=== PATIENT | male | born 1975 | race African-American/Black ===

== ENCOUNTER 2024-12-04 22:04 | Inpatient (IN) | payer MEDICAID ==
[~2024-12-04] VITALS: Ht 327.7 cm; Wt 65.8 kg
[~2024-12-04 22:04] MED LIST: SULF1TAB48 MT
[2024-12-04] MEDS: SODIUM CHLORIDE 0.9% (SEPSIS BOLUS) IV ONE (23:02)
[2024-12-04] MEDS: ACETAMINOPHEN 325MG TABLET PO STA (23:03)
[2024-12-04 23:04] LABS: BASOPHILS % 0.6 % (0.0-2.0); DIFFERENTIAL COMMENT 0; HEMATOCRIT. 37.2 % (42.0-52.0); HEMOGLOBIN. 12.9 g/dL (14.0-18.0); LYMPHOCYTES % 8.9 % (20.0-50.0); MEAN CORPUSCULAR HEMOGLOBIN 34.7 pg (28.0-32.0); MEAN CORPUSCULAR HGB CONC 34.6 g/dL (31.0-37.0); MEAN CORPUSCULAR VOLUME 100.3 fL (80.0-94.0); MEAN PLATELET VOLUME 8.1 fl (7.4-10.4); MONOCYTES % 13.3 % (2.0-8.0); NEUTROPHILS % 77.2 % (40.0-76.0); PLATELET 150 x1000/uL (130-400); RED BLOOD CELL COUNT 3.71 mill/uL (4.7-6.1); RED CELL DISTRIBUTION WIDTH 16.1 % (11.6-14.6); WHITE BLOOD COUNT 9.3 x1000/uL (4.5-11.0)
[2024-12-04] MEDS: PIPERACILLIN/TAZO 3.375G/50ML 50 ML IV ONE (23:04)
[2024-12-04] MEDS: MORPHINE SULFATE 4 MG/ML INJ (FOR IV/IM USE) IV ONE (23:04)
[2024-12-04 23:12] LABS: CARBON DIOXIDE 23 mEq/L (21-32); CHLORIDE 98 mEq/L (98-107); POTASSIUM 3.7 mEq/L (3.5-5.1); SODIUM 134 mEq/L (136-145)
[2024-12-04 23:13] LABS: CALCIUM 8.9 mg/dL (8.7-10.4)
[2024-12-04 23:14] LABS: PROTHROMBIN TIME 10.7 sec (9.6-11.0)
[2024-12-04 23:18] LABS: CREATININE 0.7 mg/dL (0.6-1.3); ETHANOL BLOOD 93 mg/dL (<10); GLUCOSE 105 mg/dL (70-105); UREA NITROGEN BLOOD 7 mg/dL (9-23)
[2024-12-04 23:19] LABS: LACTIC ACID 2.3 mmol/L (0.4-2.0)
[2024-12-04 23:20] LABS: ALANINE AMINOTRANSFERASE 15 IU/L (10-49); ALBUMIN 4.4 g/dL (3.2-4.8); ASPARTATE AMINOTRANSFERASE 25 IU/L (<34); BILIRUBIN DIRECT 0.1 mg/dL (<=3.0); BILIRUBIN TOTAL 0.4 mg/dL (0.1-1.0); TROPONIN I HIGH SENSITIVITY < 4 ng/L (3.0-53)
[2024-12-04] MEDS: VANCOMYCIN 1G PREMIX 200 ML IV ONE (23:25)
[2024-12-05] MEDS ORDERED: ACETAMINOPHEN 650MG SUPP PR PRN ×2 (01:15)
[2024-12-05] MEDS ORDERED: IPRATROPIUM/ALBUTEROL 0.5-3(2.5)MG/3ML NEB HHN PRN (01:15)
[2024-12-05] MEDS ORDERED: ONDANSETRON HCL 4MG/2ML INJ IV PRN (01:15)
[2024-12-05] MEDS ORDERED: AMLODIPINE 10MG TABLET PO SCH (01:30)
[2024-12-05] MEDS ORDERED: KETOROLAC 15MG/ML VIAL IV PRN (01:30)
[2024-12-05] MEDS ORDERED: HYDRALAZINE 20MG/ML VIAL IV PRN (01:45)
[2024-12-05] MEDS: MVI, ADULT NO.1 10 ML, FOLIC ACID 1 MG, THIAMINE HCL 100 MG in SODIUM CHLORIDE 0.9% 1,0... IV SCH (02:29)
[2024-12-05] MEDS: DEXT 5%/0.9% NACL 1,000 ML IV SCH (02:44)
[2024-12-05 02:50] LABS: PHOSPHORUS 2.1 mg/dL (2.5-4.9)
[2024-12-05] MEDS: PANTOPRAZOLE SODIUM 40 MG/VIAL IV SCH (02:50)
[2024-12-05 02:56] VITALS: BP 140/81; PULSE 97; RESP 18; TEMP 37.3
[2024-12-05 03:03] LABS: PARTIAL THROMBOPLASTIN TIME 34.2 sec (23.4-31.0); PROTHROMBIN TIME 10.7 sec (9.6-11.0)
[2024-12-05] MEDS ORDERED: LORAZEPAM 2MG/ML UD SYRINGE IV PRN (04:45)
[2024-12-05] MEDS: MAGNESIUM 2 G PREMIX 50 ML IV NR (05:04)
[2024-12-05] MEDS ORDERED: IOHEXOL-300 100 ML BOTTLE ONE (05:08)
[2024-12-05 05:25] VITALS: BP 140/81; PULSE 97; RESP 18; TEMP 37.2; O2SAT 97
[2024-12-05] MEDS: PIPERACILLIN/TAZO 3.375G/50ML 50 ML IV SCH (05:55)
[2024-12-05] MEDS: POTASSIUM PHOSPHATE 30 MMOL in SODIUM CHLORIDE 0.9% 490 ML IV NR (07:14)
[2024-12-05 07:17] LABS: CLARITY URINE CLEAR (CLEAR); COLOR URINE YELLOW (YELLOW); GLUCOSE URINE NEGATIVE (NEGATIVE); KETONES URINE NEGATIVE (NEGATIVE); LEUKOCYTE ESTERASE URINE NEGATIVE (NEGATIVE); NITRITE URINE NEGATIVE (NEGATIVE); OCCULT BLOOD URINE NEGATIVE (NEGATIVE); PROTEIN URINE NEGATIVE (NEGATIVE); SPECIFIC GRAVITY URINE 1.036 (1.005-1.030); UROBILINOGEN URINE 0.2 E.U./dL (0.2-1.0)
[2024-12-05 07:39] VITALS: BP 148/101; PULSE 86; RESP 17; TEMP 37.2; O2SAT 98
[2024-12-05 07:44] LABS: *AMPHETAMINES SCREEN URINE NEGATIVE (NEGATIVE); *BARBITURATES SCREEN URINE NEGATIVE (NEGATIVE); *BENZODIAZEPINES SCREEN URINE NEGATIVE (NEGATIVE); *COCAINE SCREEN URINE PRESUMPTIVE POSITIVE (NEGATIVE); CANNABINOID URINE SCREEN PRESUMPTIVE POSITIVE (NEGATIVE); ECSTASY MDMA SCREEN URINE NEGATIVE (NEGATIVE); METHADONE URINE SCREEN NEGATIVE (NEGATIVE); OPIATES URINE SCREEN PRESUMPTIVE POSITIVE (NEGATIVE); PHENCYCLIDINE URINE SCREEN NEGATIVE (NEGATIVE)
[2024-12-05] MEDS: AMLODIPINE 10MG TABLET PO SCH (08:25)
[2024-12-05] MEDS ORDERED: MAGNESIUM 2 G PREMIX 50 ML IV ONE (08:45)
[2024-12-05] MEDS ORDERED: VANCOMYCIN 1GM/200ML PMX (BAXTER) IV SCH (09:00)
[2024-12-05] MEDS: VANCOMYCIN 1GM/200ML PMX (BAXTER) IV SCH (09:05)
[2024-12-05 11:40] LABS: CREATINE KINASE MB FRACTION < 0.5 ng/mL (0.5-3.6)
[2024-12-05 11:47] LABS: FOLIC ACID (FOLATE) SERUM > 20.00 ng/mL (>5.38); VITAMIN B12 SERUM 476 pg/mL (211-911)
[2024-12-05 12:00] VITALS: BP 155/93; PULSE 86; RESP 17; TEMP 36.7; O2SAT 98
[2024-12-05 12:57] LABS: CREATINE KINASE 92 IU/L (46-171); TROPONIN I HIGH SENSITIVITY < 4 ng/L (3.0-53)
[2024-12-05] MEDS ORDERED: SODIUM PHOSPHATE 15 MMOL in DEXT 5% WATER 245 ML IV ONE (14:00)
[2024-12-05 16:00] VITALS: BP 144/104; PULSE 106; RESP 18; TEMP 36.8; O2SAT 100
[2024-12-05 16:27] LABS: CREATINE KINASE MB FRACTION < 0.5 ng/mL (0.5-3.6)
[2024-12-05 16:29] LABS: CREATINE KINASE 104 IU/L (46-171); TROPONIN I HIGH SENSITIVITY < 4 ng/L (3.0-53)
[2024-12-05 20:00] VITALS: BP 154/96; PULSE 103; RESP 18; TEMP 36.9; O2SAT 98
[2024-12-05] MEDS: ACETAMINOPHEN 325MG TABLET PO PRN (22:12)
[2024-12-05] MEDS ORDERED: ACETAMINOPHEN 325MG TABLET PO PRN ×2 (22:15)
[2024-12-05] MEDS: VANCOMYCIN 1.25GM/250ML 250 ML IV SCH (22:31)
[2024-12-06] VITALS: BP 138/75; PULSE 98; RESP 19; TEMP 36.6; O2SAT 98
[2024-12-06 04:00] VITALS: BP 127/79; PULSE 82; RESP 18; TEMP 36.9; O2SAT 98
[2024-12-06 05:57] LABS: BASOPHILS % 0.1 % (0.0-2.0); DIFFERENTIAL COMMENT 0; EOSINOPHILS % 0.6 % (0.0-5.0); HEMATOCRIT 38.9 % (42.0-52.0); HEMATOCRIT. 38.9 % (42.0-52.0); HEMOGLOBIN 13.2 g/dL (14.0-18.0); HEMOGLOBIN. 13.2 g/dL (14.0-18.0); LYMPHOCYTES % 11.3 % (20.0-50.0); MEAN CORPUSCULAR HEMOGLOBIN 34.1 pg (28.0-32.0); MEAN CORPUSCULAR VOLUME 100.2 fL (80.0-94.0); MEAN PLATELET VOLUME 8.9 fl (7.4-10.4); MONOCYTES % 10.8 % (2.0-8.0); NEUTROPHILS % 77.2 % (40.0-76.0); PLATELET 161 x1000/uL (130-400); RED BLOOD CELL COUNT 3.88 mill/uL (4.7-6.1); RED CELL DISTRIBUTION WIDTH 15.7 % (11.6-14.6); WHITE BLOOD COUNT 8.9 x1000/uL (4.5-11.0)
[2024-12-06 06:11] LABS: CHLORIDE 100 mEq/L (98-107); POTASSIUM 3.5 mEq/L (3.5-5.1); SODIUM 135 mEq/L (136-145)
[2024-12-06 06:13] LABS: CALCIUM 9.4 mg/dL (8.7-10.4); CARBON DIOXIDE 28 mEq/L (21-32)
[2024-12-06 06:18] LABS: CREATININE 0.6 mg/dL (0.6-1.3); GLUCOSE 107 mg/dL (70-105)
[2024-12-06 06:19] LABS: LDL CHOLESTEROL 69 mg/dL (5-100); TRIGLYCERIDE 52 mg/dL (0-150); UREA NITROGEN BLOOD < 5 mg/dL (9-23)
[2024-12-06 06:20] LABS: HDL CHOLESTEROL 88 mg/dL (>55); PHOSPHORUS 2.7 mg/dL (2.5-4.9)
[2024-12-06 06:23] LABS: ALBUMIN 4.2 g/dL (3.2-4.8)
[2024-12-06 06:24] LABS: ALANINE AMINOTRANSFERASE 11 IU/L (10-49); ASPARTATE AMINOTRANSFERASE 25 IU/L (<34); BILIRUBIN DIRECT 0.1 mg/dL (<=3.0); BILIRUBIN TOTAL 0.4 mg/dL (0.1-1.0); PROTEIN TOTAL 7.5 g/dL (6.0-8.3)
[2024-12-06 06:28] LABS: CHOLESTEROL 169 mg/dL (<200)
[2024-12-06 08:00] VITALS: BP 127/75; PULSE 74; RESP 18; TEMP 36.4; O2SAT 100
[2024-12-06] MEDS ORDERED: SULF1TAB48 MT (10:28)
[2024-12-06] MEDS ORDERED: AMLO10TA80 PO (10:28)
[2024-12-06] MEDS ORDERED: AMOX1TAB16 MT (10:28)
[2024-12-06 12:00] VITALS: BP 125/78; PULSE 87; RESP 18; TEMP 36.6
[2024-12-06 13:46] VITALS: BP 125/78; PULSE 87; TEMP 97.9; O2SAT 99
[2024-12-06] MEDS ORDERED: VANCOMYCIN 1G PREMIX 200 ML IV SCH (15:00)
[2024-12-07] MEDS ORDERED: FAMOTIDINE 20MG/2ML VIAL IV SCH (09:00)
== END 2024-12-06 15:40 | disposition home or self-care (01) | DRG 720 ==
LOC: ER 22:04 → EDBEDREQ 22:25 → 8WST 12-05 00:12 → EDBEDREQ 12-05 00:26 → ENRESERV 12-05 01:15
PROVIDERS: ADMIT Hospitalist; ATTEND Hospitalist
DX: A41.9 Sepsis, unspecified organism (principal); E87.20 Acidosis, unspecified; E83.39 Other disorders of phosphorus metabolism; E87.1 Hypo-osmolality and hyponatremia; B86 Scabies; D53.9 Nutritional anemia, unspecified; E83.42 Hypomagnesemia; I10 Essential (primary) hypertension; L03.314 Cellulitis of groin; K40.20 Bilateral inguinal hernia, without obstruction or gangrene, not specified as recurrent; Y90.9 Presence of alcohol in blood, level not specified; L08.0 Pyoderma; F19.10 Other psychoactive substance abuse, uncomplicated; M71.21 Synovial cyst of popliteal space [Baker], right knee; B02.8 Zoster with other complications; F10.129 Alcohol abuse with intoxication, unspecified; F17.210 Nicotine dependence, cigarettes, uncomplicated; Z86.73 Personal history of transient ischemic attack (TIA), and cerebral infarction without residual deficits
CPT/HCPCS: 36415; 71045; 74177; 80048; 80061; 80076; 80202; 80305; 80320; 81003; 82550; 82553; 82607; 82746; 83605; 83735; 84100; 84145; 84484; 85025; 85027; 86850; 86900; 93005; 93970; 96365; 96367; 96375; 99291; A4606; J2270; J2470; J2543; J3370; J3411; J3475; J3490; J7030; J7040; J7060; Q9967; G0480

== ENCOUNTER 2025-01-09 08:34 | Emergency (ER) | payer MEDICAID ==
[~2025-01-09] VITALS: Ht 170.2 cm; Wt 59.0 kg
[~2025-01-09 08:34] MED LIST changes: +AMLO10TA80 PO; +AMOX1TAB16 MT
[2025-01-09 08:38] VITALS: O2SAT 99
[2025-01-09] MEDS: KETOROLAC 30MG/ML VIAL IM ONE (09:08)
[2025-01-09] MEDS ORDERED: IBUP-2030 MT (09:15)
[2025-01-09] MEDS ORDERED: LIDO-53 TP (09:15)
[2025-01-09 09:32] VITALS: BP 147/103; PULSE 77; RESP 16; TEMP 36.8; O2SAT 99
== END 2025-01-09 09:36 | disposition home or self-care (01) ==
LOC: ER 08:34
DX: M54.50 Low back pain, unspecified (principal); F12.10 Cannabis abuse, uncomplicated; Z79.899 Other long term (current) drug therapy
CPT/HCPCS: 99283; 96372; J1885